=== PATIENT | female | born 1985 | race Caucasian/White ===

== ENCOUNTER → 2024-01-03 06:30 | Day surgery (SDC) | payer OTHER, SELFPAY | LOC: GI 06:30 | PROVIDERS: ATTENDING PHYSICIAN Internal Medicine Gastroenterology | DX: Z12.11 Encounter for screening for malignant neoplasm of colon (principal); D12.3 Benign neoplasm of transverse colon; D12.7 Benign neoplasm of rectosigmoid junction; K64.0 First degree hemorrhoids; Z83.710 Family history of adenomatous and serrated polyps | CPT/HCPCS: 45385; 88305 ==